=== PATIENT | male | born 1955 | race Caucasian/White ===

== ENCOUNTER 2016-09-29 12:13 | Inpatient (IN) | payer OTHER ==
[2016-09-29] MEDS ORDERED: ONDANSETRON 4 MG/2ML 2 ML VIAL ONE (13:50)
[2016-09-29] MEDS ORDERED: NALBUPHINE HCL 10 MG/ML AMP ONE (13:50)
[2016-09-29 14:20] LABS: ABSOLUTE NEUTROPHIL COUNT 7.5 K/mm3 (1.8-7.7); BASO % 0.2 % (0.2-1.0); EOS # 0.1 (0.0-0.5); EOS % 0.8 % (0.9-2.9); HEMATOCRIT 40.7 % (32.0-52.0); HEMOGLOBIN 13.2 gm/l (14.0-18.0); IMM NEUT # 0.1 K/mm3 (0-0.2); IMM NEUT% 0.5 % (0-1); LYMPH # 2.4 (1.0-4.8); LYMPH % 20.2 % (15-45); MEAN CORPUSCULAR HEMOGLOBIN 28.2 pg (27.0-31.0); MEAN CORPUSCULAR HGB CONC 32.4 g/dl (33.0-37.0); MEAN PLATELET VOLUME 10.2 fl (7.4-10.4); MONO # 1.7 (0.0-0.8); MONO % 14.3 % (4-12); PLATELET COUNT 222 K/mm3 (130-400)
--- NOTE | 2016-09-29 14:30 | RAD ---
FOOT RIGHT 3 VIEWS COMPARISON: Right foot 3 views, 12/02/2015 HISTORY: Right foot pain. Infection after amputation. Rule out osteomyelitis. FINDINGS: Views: Right foot dorsoplantar, medial oblique, lateral. Bones: Status post amputation at the proximal metatarsal level. Marked irregularity at the amputated ends of the bones. Joints: Normal. Soft tissues: Marked edema of the soft tissues at the amputation site. IMPRESSION: High suspicion for osteomyelitis of the metatarsals at the amputation site, with marked edema of the overlying soft tissues. Recommendation: MRI with and without contrast of the right foot.
[2016-09-29 14:36] LABS: ALB/GLOB RATIO 0.9 (>1.0); ALBUMIN 3.8 gm/dL (3.5-5.7); CALCIUM 9.3 mg/dL (8.6-10.3)
[2016-09-29] MEDS ORDERED: ERTAPENEM SODIUM 1 G VIAL ONE (14:47)
[2016-09-29] MEDS ORDERED: SODIUM CHLORIDE 0.9% 50 ML IV ONE (14:47)
[2016-09-29] MEDS ORDERED: VANCOMYCIN HCL 1.75 G in SODIUM CHLORIDE 0.9% 500 ML IV ONE (15:00)
[2016-09-29] MEDS ORDERED: INSULIN ASPART (DOSE) 100 UNITS/1 ML SUB-Q PRN (15:53)
[2016-09-29] MEDS ORDERED: BISACODYL 10 MG SUP PR PRN (16:11)
[2016-09-29] MEDS ORDERED: BISACODYL 5 MG TABLET.EC PO PRN (16:11)
[2016-09-29] MEDS ORDERED: ACETAMINOPHEN 325 MG TABLET PO PRN (16:11)
[2016-09-29] MEDS ORDERED: MAGNESIUM HYDROXIDE 30 ML UDCUP PO PRN (16:11)
[2016-09-29] MEDS ORDERED: MENTHOL/CETYLPYRD 1 EACH LOZENGE PO PRN (16:11)
[2016-09-29] MEDS ORDERED: BLISTEX LIPSTICK 1 EACH TP PRN (16:11)
[2016-09-29 16:17] VITALS: BMI 37.3
[2016-09-29] MEDS: ENOXAPARIN SODIUM 40 MG/0.4 ML SYRINGE SUB-Q SCH (17:22)
[2016-09-29] MEDS: DOCUSATE SODIUM 100 MG CAPSULE PO SCH (21:31)
[2016-09-30] MEDS ORDERED: PUMP TUBING ONE (01:23)
[2016-09-30] MEDS: VANCOMYCIN HCL 2 G in SODIUM CHLORIDE 0.9% 500 ML IV SCH ×2 (01:30→13:35)
[2016-09-30] MEDS: SODIUM CHLORIDE 0.9% 100 ML IV PRN ×2 (01:31→16:30)
[2016-09-30 06:15] LABS: ABSOLUTE NEUTROPHIL COUNT 6.9 K/mm3 (1.8-7.7); BASO % 0.3 % (0.2-1.0); EOS # 0.1 (0.0-0.5); EOS % 0.9 % (0.9-2.9); HEMATOCRIT 36.3 % (32.0-52.0); HEMOGLOBIN 11.7 gm/l (14.0-18.0); IMM NEUT% 0.3 % (0-1); LYMPH # 3.1 (1.0-4.8); MEAN CELL VOLUME 88.1 fl (80.0-94.0); MEAN CORPUSCULAR HEMOGLOBIN 28.4 pg (27.0-31.0); MEAN CORPUSCULAR HGB CONC 32.2 g/dl (33.0-37.0); MEAN PLATELET VOLUME 10.6 fl (7.4-10.4); MONO # 1.8 (0.0-0.8); MONO % 14.9 % (4-12); NEUT % 57.6 % (43-75); PLATELET COUNT 207 K/mm3 (130-400); RED CELL DISTRIBUTION WIDTH 14.2 % (11.5-14.5)
[2016-09-30 06:35] LABS: CALCIUM 8.6 mg/dL (8.6-10.3)
[2016-09-30 06:36] LABS: C-REACTIVE PROTEIN 8.6 mg/dl (<1.0)
--- NOTE | 2016-09-30 07:01 | HP ---
STEPHANIE SANDOVAL [id number] : 01/27/1952 DATE OF ADMISSION: September 29, 2016 IDENTIFICATION: Mr. Sandoval is a 61-year-old. He is assigned to [facility], but he has never been seen there. CHIEF COMPLAINT: Right foot pain. HISTORY OF PRESENT ILLNESS: Mr. Sandoval has diabetes and peripheral neuropathy for which he takes no medications. He has had swelling in his right foot ever since he had a partial amputation in Dec, 2015. He has had increasing pain in the foot for at least the last week and quite severe for the last three days. He noted some blood on the floor of his motor home a few days ago but did not immediately realize that his foot was bleeding. He has not had any fever. A friend convinced him to come to the emergency room today and x-rays suggest osteomyelitis of the right foot, and he was referred to the hospitalist service. REVIEW OF SYSTEMS: HEENT: No headaches, lightheadedness, or loss of consciousness. He is deaf in his right ear. No other problems with ears, eyes, nose or throat. RESPIRATORY: No cough or dyspnea. CARDIAC: No chest pain or palpitations. GASTROINTESTINAL: No nausea, vomiting, or dyspepsia. No diarrhea, constipation, hematochezia or melena. GENITOURINARY: No dysuria or urgency. MUSCULOSKELETAL: No complaints other than the right foot pain. CONSTITUTIONAL: No fever or chills. PAST MEDICAL HISTORY: 1. Diabetes mellitus type 2 complicated by peripheral neuropathy. Not on medical treatment. 2. Obesity with a body mass index greater than 32. 3. Deaf right ear with some balance difficulty. PAST SURGICAL HISTORY: 1. Right forefoot amputation, Dec, 2015, at [facility]. 2. Hernia repair. 3. Right shoulder surgery. ALLERGIES: NONE KNOWN. MEDICATIONS: None. HABITS: Denies any current or past tobacco use. Past alcohol use but quit that because he was losing friends. Denies illicit drug use. SOCIAL HISTORY: He lives in a motor home on an [place] site in [place]. 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 FAMILY HISTORY: Unavailable as he was adopted. PHYSICAL EXAMINATION: GENERAL: This is an obese 61-year-old in no acute distress. VITAL SIGNS: Temperature 98.9 degrees Fahrenheit, blood pressure 145/82, pulse 86, respiratory rate 16, oxygen saturation 95% on room air. HEENT: Pupils are equal, round and reactive. Extraocular muscles are intact. Oropharynx is moist. Dentition in moderate condition. EXTREMITIES: He has marked venous stasis dermatitis of both lower extremities. The left foot has moderate dorsalis pedis pulse but is cool to the touch with cyanosis of the toes. On the right he has well healed forefoot amputation. On the plantar surface towards the lateral aspect, there is a 1 cm open wound without drainage. There is some generalized erythema and edema of the foot. NEUROLOGIC: Alert and oriented. Decreased sensation in the lower extremities. LABORATORY DATA: White blood cell count is 11.6, hemoglobin and hematocrit 13.2 and 40.7, platelets 222. Lactate 0.8, sodium 134, potassium 4.0, chloride 98, CO2 30, BUN 16, creatinine 0.7, glucose 109, bilirubin is 1.8. Liver enzymes are normal. RADIOLOGY: Foot x-ray highly suspicious for osteomyelitis in multiple metatarsals at the amputation site. ASSESSMENT: Mr. Sandoval is a 61-year-old with untreated diabetes who presents with cellulitis and presumed osteomyelitis of the previous partially amputated right foot. PLAN: 1. Admit to medical/surgical floor. 2. Continue antibiotic treatment with vancomycin and ertapenem as started in the emergency department. 3. Diabetic diet and blood sugar checks and treat as indicated. 4. Venous thrombosis prophylaxis with enoxaparin. 5. We will check MRI without contrast to verify and further elucidate the osteomyelitis. 6. FULL CODE status. 7. Anticipate that patient will need a PICC line and half-way antibiotics to try to treat this infection. However he understands that the chance of successfully clearing the osteomyelitis is relatively low, and he may need a below the knee amputation. He is in fact pretty much resigned to that outcome already.
--- NOTE | 2016-09-30 08:29 | PDOC43 ---
- Subjective Chief Complaint: Right foot infection Wants to go home. Right foot still painful, no other c/o. - Objective Vital Signs Temperature 99.2 F 09/30/16 07:09 Pulse Rate 100 09/30/16 07:09 Respiratory Rate 18 09/30/16 07:09 Blood Pressure 109/55 09/30/16 07:09 O2 Saturation by Pulse Oximetry 91 09/30/16 07:09 Oxygen Delivery Method Room Air Oxygen Flow Rate 0 Intake and Output 09/29/16 09/30/16 10/01/16 06:59 06:59 06:59 Intake Total 1365 Output Total 625 Balance 740 General: Alert, Oriented x3, Cooperative, No Acute Distress HEENT: Mucous membr. moist/pink Lungs: Clear to Auscultation Bilaterally Cardiovascular: Regular Rate and Rhythm Abdomen: Soft, Normal Bowel Sounds, No Tenderness, No Masses Extremities: Edema (none on left), Pulses Diminished but Palpable, Other (right foot with mild erythema and edema, open wound on plantar surface) Skin: Other (extesnive venous stasis dermatitis of calfs) Neurological: Normal Speech Psych/Mental Status: Normal Mood Laboratory 09/30/16 05:30 09/30/16 05:30 09/30/16 09/29/16 05:30 20:57 RBC 4.12 L MCHC 32.2 L ESR 38 H Estimated GFR 98 H POC Capillary Glucose 109 H C-Reactive Protein 8.6 H Current Medications: Current meds reviewed in EMR. - Problems: Assessment/Plan (1) Osteomyelitis Qualifiers: Osteomyelitis type: other acute Osteomyelitis location: foot Laterality: right Qualifier Code: (M86.171) Other acute osteomyelitis, right ankle and foot Status: AcuteAssessment/Plan: Presumed bacterial infection/cellulitis of right foot with osteomylitis related to diabetes and acute laceration of foot present on admit. Continue treatment with Vancomycin and Ertapenem. MRI today. Will need PICC line and detention antibiotic treatment to attempt to salvage foot but understands there is a good chance of needing BKA in future. (2) Diabetes type 2, uncontrolled Qualifiers: Diabetes mellitus complication status: with neurologic complications Diabetes mellitus complication detail: with polyneuropathy Diabetes mellitus detention insulin use: without detention use Qualifier Code: ( E11.42) Type 2 diabetes mellitus with diabetic polyneuropathy Status: ChronicAssessment/Plan: Not on any treatment at home and BG is actually good without treatment. A1c pending. Continue CBGs AC+HS and correction dose insulin if needed. (3) Obesity (BMI 30.0-34.9) Status: ChronicAssessment/Plan: Complicates care of diabetes and foot infection. (4) Peripheral neuropathy Qualifiers: Peripheral neuropathy type: polyneuropathy associated with underlying disease Qualifier Code: (G63) Polyneuropathy in diseases classified elsewhere Status: ChronicAssessment/Plan: Diabetic peripheral neuropathy, denies pain but led to his ability to ignore acute wound of right foot. (5) Anemia Status: AcuteAssessment/Plan: mild, dilutional from IV hydration. (6) Hyponatremia Status: ChronicAssessment/Plan: Mild, not clinically significant. VTE Prophylaxis: Enoxaparin Disposition: Wants to go home but anticipate need for PICC and several weeks treatment to attempt to salvage foot.
[2016-09-30] MEDS: DOCUSATE SODIUM 100 MG CAPSULE PO SCH ×2 (09:51→20:44)
[2016-09-30] MEDS ORDERED: GADOBENATE DIMEGLUMINE IV ONE (11:15)
[2016-09-30 11:50] LABS: A1C-GLYCOHEMOGLOBIN 0.6 g/dl; HEMOGLOBIN-GLYCO 12.1 g/dl
--- NOTE | 2016-09-30 13:33 | MRI ---
ANKLE W/WO CON RT History: Swelling and redness with a tiny drainage point of the distal plantar surface of the foot. Prior partial amputation. Procedure: Short axis TI, STIR, fat saturated T2, sagittal T1 and STIR, long axis TI and fat saturated T2, and post gadolinium-enhanced axial, coronal and sagittal T1-weighted images were obtained following the administration of 20 mL of MultiHance gadolinium contrast. Comparison: Plain film examination dated 09/29/2016. Findings: Images demonstrate evidence of partial amputation of the right foot. There is absence of the forefoot be on all 5 of the proximal metatarsals. Diffuse soft tissue edema is seen along the dorsal and plantar aspects of the remaining mid foot. This is located adjacent to the prior areas of amputation and extends nearly to the level of the mid calcaneus. No focal fluid collection is visualized. There is irregularity of the remaining ends of all 5 metatarsals. There is prominent enhancement of the anterior soft tissues, most evident along the plantar aspect of the midfoot superficial and deep to the plantar aponeurosis which remains. There is also enhancement adjacent to the remaining ends of the metatarsals. This is particularly evident adjacent to the remaining fragment of the first metatarsal. On sagittal post contrast enhanced images numbers 7 and 8, there is questionable enhancement of the plantar/medial portion of the remaining first metatarsal. No evidence of abscess is visualized. Impression: 1. Partial amputation of the forefoot with resection of all 5 metatarsals beyond the proximal aspects. 2. Prominent tissue edematous changes and enhancement suggesting cellulitis involving the remaining dorsal and plantar soft tissues of the midfoot, particularly evident along the plantar aspect both superficial and deep to the plantar aponeurosis. No soft tissue abscess is visualized. 3. Questionable subtle enhancement of the plantar/medial distal portion of the remaining first metatarsal raising the possibility of early osteomyelitis. The findings were discussed with Dr. Sherman at 1330 hours.
[2016-09-30] MEDS ORDERED: ERTAPENEM SODIUM 1 G in NS 0.9% (MINI-BAG PLUS) 50 ML IV SCH (14:00)
[2016-09-30] MEDS: ENOXAPARIN SODIUM 40 MG/0.4 ML SYRINGE SUB-Q SCH (17:38)
[2016-09-30] MEDS ORDERED: LORAZEPAM 2 MG/ML 1ML SDV IV PRN (18:28)
[2016-09-30] MEDS ORDERED: LIDOCAINE 1% (PRES FREE) 5 ML VIAL PF PRN (18:28)
[2016-10-01 01:05] LABS: VANCOMYCIN TROUGH 9.5 ug/ml (5.0-10.0)
[2016-10-01] MEDS: VANCOMYCIN HCL 2 G in SODIUM CHLORIDE 0.9% 500 ML IV SCH ×3 (01:55→10:35)
[2016-10-01] MEDS: DOCUSATE SODIUM 100 MG CAPSULE PO SCH (09:58)
[2016-10-01] MEDS ORDERED: Sodium Chloride 0.9% 40 ML ONE (11:03)
[2016-10-01] MEDS ORDERED: IV START KIT ONE (11:20)
--- NOTE | 2016-10-01 12:44 | RAD ---
CXR FOR PLACEMENT/LINE or TUBE HISTORY: PICC line placement. COMPARISONS: 12/02/2015. FINDINGS: A single view of the chest demonstrates interval placement of a left-sided PICC catheter with its tip located within the expected location of the superior vena cava. The tip of the catheter appears to be approximately 3.6 cm proximal to the atrial caval junction. The heart size is stable. There is a small metallic focus projecting over the trachea, likely external to the patient. The lung conrad are clear. IMPRESSION: 1. A left-sided PICC catheter with the tip located within the superior vena cava approximately 3.6 cm proximal to the atrial caval junction. No pneumothorax is seen. 2. A small radiopaque focus projecting over the superior mediastinum and trachea, likely external to the patient though clinical correlation is recommended. The findings were called to [facility] at 1240 hours.
[2016-10-01 14:49] VITALS: BP 141/95
--- NOTE | 2016-10-01 15:00 | PDOC43 ---
- Subjective Chief Complaint: Right foot infection Patient tells nurse he is eager to go now that he got his PICC line. Placement has been confirmed. He got his vanco, but due for other abx. - Objective Vital Signs Temperature 98.2 F 10/01/16 07:43 Pulse Rate 81 10/01/16 07:43 Respiratory Rate 18 10/01/16 08:00 Blood Pressure 169/92 10/01/16 07:43 O2 Saturation by Pulse Oximetry 93 10/01/16 07:43 Oxygen Delivery Method Room Air Oxygen Flow Rate 0 Vital Signs Last 12 Hours Temp Pulse Resp BP Pulse Ox 10/01/16 08:00 18 10/01/16 07:43 98.2 F 81 18 169/92 93 Intake and Output 09/29/16 09/30/16 10/01/16 23:59 23:59 23:59 Intake Total 2695 855 Output Total 3425 1300 Balance -730 -445 Laboratory 09/30/16 05:30 10/01/16 00:35 10/01/16 10/01/16 10/01/16 12:42 08:26 00:35 Estimated GFR 115 H POC Capillary Glucose 157 H 104 H 09/30/16 09/30/16 20:42 17:47 Estimated GFR POC Capillary Glucose 121 H 102 H Current Medications: Current meds reviewed in EMR. Active Medications Acetaminophen (Tylenol) 650 mg PO Q6H PRN PRN Reason: Pain or Temperature > 100.5 F Benzocaine/Menthol (Cepacol) 1 each PO PRN PRN PRN Reason: Sore Throat Bisacodyl (Dulcolax) 10 mg ID DAILY PRN PRN Reason: Constipation Bisacodyl (Dulcolax) 5 mg PO DAILY PRN PRN Reason: Constipation Docusate Sodium (Colace) 100 mg PO BID [facility] Last Admin: 10/01/16 09:58 Dose: Not Given Enoxaparin Sodium (Lovenox) 40 mg SUB-Q Q24H [facility] Last Admin: 09/30/16 17:38 Dose: Not Given Ertapenem 1 g/ NS 0.9% (MINI- (BAG PLUS)) 50 mls @ 100 mls/hr IV Q24H [facility] Last Admin: 09/30/16 16:22 Dose: 100 mls/hr Sodium Chloride (Sodium Chloride 0.9%) 100 mls @ 25 mls/hr IV PRN PRN PRN Reason: Flush Last Admin: 09/30/16 16:30 Dose: 25 mls/hr Vancomycin HCl 2 g/ Sodium (Chloride) 540 mls @ 270 mls/hr IV Q8H [facility] PRN Reason: Protocol Last Admin: 10/01/16 10:35 Dose: 270 mls/hr Insulin Aspart (Novolog (Dose)) 0 units SUB-Q WM/BEDTIME PRN; Protocol PRN Reason: Blood Sugar > Lidocaine HCl (Lidocaine 1% (Pres Free)) 2 - 5 ml PF X1 PRN PRN Reason: Pain from PICC line placement Lorazepam (Ativan) 0.5 - 1 mg IV X1 PRN PRN Reason: Anxiety during PICC Placement Last Admin: 10/01/16 11:16 Dose: 1 mg Magnesium Hydroxide (Milk Of Magnesia) 30 ml PO DAILY PRN PRN Reason: Constipation Petrolatum/Paraffin/Mineral Oil (Blistex) 1 each TP PRN PRN PRN Reason: Dry and/or chapped lips Sodium Chloride (Normal Saline 10ml Flush) 10 ml IV Q8HR [facility] Last Admin: 10/01/16 09:58 Dose: 10 ml Sodium Chloride (Normal Saline 10ml Flush) 10 - 50 ml IV PRN PRN Last Admin: 10/01/16 11:16 Dose: 20 ml - Problems: Assessment/Plan (1) Osteomyelitis Qualifiers: Osteomyelitis type: other acute Osteomyelitis location: foot Laterality: right Qualifier Code: (M86.171) Other acute osteomyelitis, right ankle and foot Status: AcuteAssessment/Plan: Presumed bacterial infection/cellulitis of right foot with osteomylitis related to diabetes and acute laceration of foot present on admit. Continue treatment with Vancomycin and Ertapenem, but will check with podiatry about preferred antibiotic choices. Dr Марина Baumann DPM ([place]) had requested Vancomycin, and will see him on at 9:15 However, with instability of Vanco in pt needing q 8 hr administration, [facility] not available. Discussed with fireperson for [facility], and he would suggest use of Augmentin for now, Keep appt with Pastor, and then will determine if further IV abx needed. Anticipate local company intermodal truck driver antibiotic treatment to attempt to salvage foot but understands there is a good chance of needing BKA in future. (2) Anemia Status: AcuteAssessment/Plan: mild, dilutional from IV hydration. (3) Diabetes type 2, uncontrolled Qualifiers: Diabetes mellitus complication status: with neurologic complications Diabetes mellitus complication detail: with polyneuropathy Diabetes mellitus fci insulin use: without local company intermodal truck driver use Qualifier Code: ( E11.42) Type 2 diabetes mellitus with diabetic polyneuropathy Status: ChronicAssessment/Plan: Not on any treatment at home and BG is actually good without treatment. A1c 6.4. Continue CBGs AC+HS and correction dose insulin if needed. (4) Hyponatremia Status: ChronicAssessment/Plan: Mild, not clinically significant. (5) Obesity (BMI 30.0-34.9) Status: ChronicAssessment/Plan: Complicates care of diabetes and foot infection. VTE Prophylaxis: Enoxaparin Disposition: Wants to go home; anticipate arranging for IV tx.
--- NOTE | 2016-10-01 16:51 | DS ---
STEPHANIE SANDOVAL [id number] DATE OF ADMISSION: September 29, 2016 DATE OF DISCHARGE: October 01, 2016 DISCHARGE DIAGNOSES: Are: 1. Right foot diabetic foot ulcer, newly developed, with concern for osteomyelitis. 2. Prior right forefoot amputation, Dec, 2015. 3. Diabetes type 2 with peripheral neuropathy, but not currently on any medical treatments. 4. Obesity with a BMI greater than 32. 5. Suspected peripheral vascular disease. REASON FOR ADMISSION: The patient is a 61-year-old male who has diabetes treated with diet and peripheral neuropathy for which he takes no medications. He has had swelling in the right foot since having a partial amputation in Dec, 2015, but for the last week he has had increasing pain in the foot and particularly over the last three days. He had noted some blood on his floor at home and had not initially recognized its orgin. He has not had any fever. A friend convinced him to come to the emergency room; x-rays suggested osteomyelitis of the right foot so he was referred to the hospitalist service. Labs on admission showed a white blood cell count of 11.6, hemoglobin 13.2, platelets 222, sedimentation rate of 75, lactate 0.8, sodium 134, potassium 4.0, BUN 16, creatinine 0.7, glucose 109, A1c of 6.4, calcium 9.3. Liver enzymes normal. Bilirubin 1.8. C-reactive protein 6.3, albumin 3.8, TSH 1.03. His initial foot x-ray was read as high suspicion for osteomyelitis of the metatarsals of the amputation site with marked edema of the overlying soft tissues. Recommend MRI of the foot. Patient was placed on ertapenem and vancomycin and sent for MRI on September 30, 2016. It showed (previous) partial amputation of the forefoot with resection of all five metatarsals beyond the proximal aspects. Proximal tissue edematous changes and enhancement suggesting cellulitis involving the remaining dorsal and plantar soft tissues of the mid foot particularly evident along the plantar aspect both superficial and deep to the plantar aponeurosis. No soft tissue abscess visualized. Questionable subtle enhancement of the plantar medial distal portion of the remaining first metatarsal raising the possibility of early osteomyelitis. Patient's stay was fairly unremarkable. He remained afebrile with a maximum temperature of 99.0. His blood pressure remained good. His white blood cell count stayed stable from 11.6 to 11.9, but his sedimentation rate went from 75 to 38. Followup chemistry remained unchanged, and his blood sugars remained well controlled with a low of 75 and a high of 157. Most of them generally below 120. A PICC line was placed. Patient's followup was discussed with him. He preferred to follow up with Dr. Марина Baumann DPM in [place] and so a followup appointment was made with him. I spoke with Dr. Baumann who graciously agreed to see him at 9:15. In review of antibiotic choices, she had preferred vancomycin but due to difficulties with stability of vancomycin, it is no longer being done at our hospital through [facility], so would not be available. A call was placed to [facility] where he had been seen in the past and physician covering had suggested just using Augmentin since the patient was not appearing septic or particularly ill at this time. We will leave the PICC line placed and if Dr. Baumann and her infectious disease provider relations consultant wish to use it, they are welcome to, but otherwise it should be discontinued. Patient was advised to not walk on this foot but to use a scooter or crutches and we will continue his regular diabetic care. DISCHARGE MEDICATIONS: His discharge antibiotic at this time will be Augmentin 875/125 one orally twice daily. Ten days are given although Dr. Baumann may choose to extend that or revise this. Cc: Марина Baumann D.P.M. [facility]
== END 2016-10-01 15:50 | disposition home or self-care (01) | DRG 638 ==
LOC: ED 12:13 → MS 14:46
PROVIDERS: ADMIT Family Medicine; ATTEND Family Medicine
PROC: 02HV33Z Insertion of Infusion Device into Superior Vena Cava, Percutaneous Approach (ICD-10-PCS; principal; 2016-09-30)
DX: E11.69 Type 2 diabetes mellitus with other specified complication (principal); M86.171 Other acute osteomyelitis, right ankle and foot; L03.115 Cellulitis of right lower limb; E87.1 Hypo-osmolality and hyponatremia; E11.21 Type 2 diabetes mellitus with diabetic nephropathy; E66.9 Obesity, unspecified; Z68.32 Body mass index [BMI] 32.0-32.9, adult; H91.91 Unspecified hearing loss, right ear; E11.621 Type 2 diabetes mellitus with foot ulcer; L97.519 Non-pressure chronic ulcer of other part of right foot with unspecified severity; I87.2 Venous insufficiency (chronic) (peripheral); D64.9 Anemia, unspecified